=== PATIENT | female | born 1955 | race Caucasian/White ===

== ENCOUNTER 2016-04-11 15:51 | Emergency (ER) | payer MEDICARE ==
[2016-04-11] MEDS ORDERED: ED CLINDAMYCIN PREMIX 50 ML IV ONE (17:17)
[2016-04-11] MEDS ORDERED: DILAUDID 1 MG/ML AMP ONE (17:17)
[2016-04-11] MEDS ORDERED: SODIUM CHLORIDE 0.9% 1,000 ML ONE (17:17)
== END 2016-04-11 19:35 | disposition home or self-care (01) ==
LOC: ER 15:51
DX: L03.116 Cellulitis of left lower limb (principal); M25.572 Pain in left ankle and joints of left foot
CPT/HCPCS: 36415; 80053; 85025; 85652; 96361; 96365; 96375; 99283; J1170